=== PATIENT | male | born 1995 | race African-American/Black ===

== ENCOUNTER 2017-02-24 23:28 | Emergency (ER) | payer MEDICAID, OTHER ==
[~2017-02-24] VITALS: Ht 188 cm; Wt 91.0 kg
[2017-02-25] MEDS ORDERED: KETOROLAC 60MG/2ML VIAL IM ONE (00:30)
[2017-02-25 00:37] VITALS: BP 155/78
== END 2017-02-25 01:06 | disposition home or self-care (01) ==
LOC: ER 23:28
DX: K64.9 Unspecified hemorrhoids (principal)
CPT/HCPCS: 96372; 99283; J1885; Z7610